=== PATIENT | male | born 1970 | race Caucasian/White ===

== ENCOUNTER 2017-04-11 09:22 | Emergency (ER) | payer OTHER ==
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
[2017-04-11] MEDS ORDERED: NO MEDICATIONS (09:30)
== END 2017-04-11 11:00 | disposition home or self-care (01) ==
LOC: SED 09:22
DX: S82.832A Other fracture of upper and lower end of left fibula, initial encounter for closed fracture (principal); V29.60XA Unspecified motorcycle rider injured in collision with unspecified motor vehicles in traffic accident, initial encounter; Y92.410 Unspecified street and highway as the place of occurrence of the external cause
CPT/HCPCS: 29515; 73610; 99283